=== PATIENT | male | born 1950 | race Caucasian/White ===

== ENCOUNTER 2022-03-23 18:45 | Emergency (ER) | payer MEDICARE, MEDICAID, SELFPAY ==
--- NOTE | ~2022-03-23 | XR_ITS ---
EXAMINATION: PORTABLE CHEST 1 VIEW CLINICAL INFORMATION: weakness . COMPARISON: No pertinent prior studies available. TECHNIQUE: Portable frontal view of the chest was obtained. FINDINGS: The lungs are hypoexpanded. Mild basilar atelectasis. No focal infiltrate, effusion, edema, or pneumothorax. Cardiac and mediastinal silhouettes are within normal limits for technique. Minimally displaced fractures of the posterior right third rib of uncertain age. XR/XR chest 1V IMPRESSION: Hypoexpanded with basilar atelectasis. Minimally displaced posterior right third rib fracture of uncertain age.
--- NOTE | ~2022-03-23 | CT_ITS ---
EXAMINATION: CT HEAD WITHOUT CONTRAST CLINICAL INFORMATION: Acute mental status change COMPARISON: None TECHNIQUE: Imaging was performed from the skull base to vertex without intravenous administration of contrast. This CT examination was performed using dose optimization techniques as appropriate, variously including the following: *Automated exposure control *Adjustment of mA and/or kV according to patient size (this includes techniques or standardized protocols for targeted exams where dose is matched to indication/reason for exam; i.e. extremities or head) *Use of iterative reconstruction technique Total exam dose length product: 835 mGy-cm FINDINGS: No intra or extra-axial fluid collection, hemorrhage, or mass. No ventriculomegaly. No midline shift or herniation. Basal cisterns are patent. Aguiar-white matter differentiation is maintained. No territorial encephalomalacia. Proportional prominence of the ventricles and sulcal spaces is consistent with mild volume loss. Minimal nonspecific periventricular white matter hypoattenuation bilaterally. A couple of small hypodense foci in the inferior lentiform nuclei bilaterally, likely represent small dilated perivascular spaces. No calvarial fracture or soft tissue abnormality. Trace mucus or tiny mucous retention cyst in the left frontal sinus. Paranasal sinuses and mastoid air cells otherwise normally aerated. CT/CT head/brain wo IV con IMPRESSION: 1. No acute intracranial pathology.
--- NOTE | ~2022-03-23 | CT_ITS ---
EXAMINATION: CT ABDOMEN AND PELVIS WITHOUT CONTRAST CLINICAL INFORMATION: Abdominal pain COMPARISON: None TECHNIQUE: Multidetector volumetric imaging was performed from the superior aspect of the liver through the pubic symphysis. Sagittal and coronal reformatted images were obtained on the technologist's workstation. This CT examination was performed using dose optimization techniques as appropriate, variously including the following: *Automated exposure control *Adjustment of mA and/or kV according to patient size (this includes techniques or standardized protocols for targeted exams where dose is matched to indication/reason for exam; i.e. extremities or head) *Use of iterative reconstruction technique DLP: 881 mGy-cm FINDINGS: LUNG BASES: The visualized lung bases are unremarkable. Calcifications are present in the aortic cusps. No pleural effusions, consolidations or lung masses are seen. LIVER, GALLBLADDER, AND BILIARY TREE: The liver is normal in size, shape, and attenuation. 2 benign hepatic cysts are present measuring 1.0 and 1.5 cm. No worrisome solid focal hepatic lesion or biliary ductal dilatation is present. The gallbladder is unremarkable with no evidence of radiopaque gallstones, gallbladder wall thickening, or obvious pericholecystic inflammatory changes. PANCREAS: Unremarkable. SPLEEN: Unremarkable. ADRENAL GLANDS: Unremarkable. KIDNEYS AND URETERS: The kidneys are normal in size, shape, and attenuation. No hydronephrosis, hydroureter, or calculi seen. No perinephric stranding. BLADDER: Unremarkable. GASTROINTESTINAL TRACT: The small and large bowel are unremarkable aside from colonic diverticulosis without diverticulitis. The appendix is unremarkable. ABDOMINAL WALL: A small left inguinal hernia seen containing fat. LYMPH NODES: No retroperitoneal lymphadenopathy. VASCULAR: Calcific plaque present in the aorta and iliac vessels which are tortuous and mildly ectatic. No aneurysm. PELVIC VISCERA: The prostate and seminal vesicles are unremarkable. OSSEOUS STRUCTURES: A hemangioma is present in the L1. Degenerative changes are present throughout the spine most marked at L4-L5. CT/CT abdomen pelvis wo IV con IMPRESSION: 1. A cause for the patient's abdominal pain has not been found. 2. Incidental note made of benign hepatic cysts, colonic diverticulosis without diverticulitis, L1 hemangioma, degenerative changes in the spine and a small left inguinal hernia containing fat. Fleischner guidelines were followed.
--- NOTE | 2022-03-23 18:55 | ED.GENADULT ---
HPI - General Adult General Chief complaint: General Medical <MARTHA Mccormack - Last Filed: 03/24/22 00:41> Stated complaint: AMS <MARTHA Mccormack - Last Filed: 03/24/22 00:41> Time Seen by Provider: 03/23/22 18:55 <MARTHA Mccormack Last Filed: 03/24/22 00:41> Source: patient and EMS <MARTHA Mccormack Last Filed: 03/24/22 00:41> Mode of arrival: EMS <MARTHA Mccormack Last Filed: 03/24/22 00:41> Limitations: no limitations <MARTHA Mccormack Last Filed: 03/24/22 00:41> History of Present Illness HPI narrative: Patient is a 71 year old assigned male at with no reported medical history presenting to the emergency department today from a SNF after an episode of tachycarida. Patient states that he feels as though he needs to have a bowel movement but has not been able to. Patient states that because of that he is having some abdominal pain as well. Patient denies any dizziness, lightheadedness, nausea, vomiting, fever, chills, blurry vision, double vision, loss of vision, chest pain, difficulty breathing, shortness of breath, back pain, night sweats, pain with urination, increased urinary frequency, increased urinary urgency, blood in his urine or stool, syncope or a near syncopal episode, recent trauma or falls, bowel incontinence, bladder incontinence, bladder retention, or any other complaints at this time. <MARTHA Mccormack - Last Filed: 03/24/22 00:41> Onset (ago): minute(s) <MARTHA Mccormack - Last Filed: 03/24/22 00:41> Location: abdomen <MARTHA Mccormack - Last Filed: 03/24/22 00:41> Radiation: non-radiation <MARTHA Mccormack - Last Filed: 03/24/22 00:41> Severity: mild <MARTHA Mccormack Last Filed: 03/24/22 00:41> Severity scale (1-10): 3 <MARTHA Mccormack Last Filed: 03/24/22 00:41> Relieving factors: none <MARTHA Mccormack Last Filed: 03/24/22 00:41> Exacerbating factors: none <MARTHA Mccormack Last Filed: 03/24/22 00:41> Associated symptoms: denies other symptoms <MARTHA Mccormack Last Filed: 03/24/22 00:41> Treatments prior to arrival: none <MARTHA Mccromack Last Filed: 03/24/22 00:41> Related Data Allergies/adverse reactions: Allergies Allergy/AdvReac Type Severity Reaction Status Date / Time Unable to Assess Allergy Unverified 03/23/22 18:59 <MARTHA Mccormack Last Filed: 03/24/22 00:41> Review of Systems Constitutional: Constitutional: Reports no additional constitutional complaints, Denies chills, Denies fever(s) and Denies night sweats <MARTHA Mccormack Last Filed: 03/24/22 00:41> Eyes: Eyes: Reports no additional eye complaints, Denies blurry vision, Denies change in vision, Denies diplopia, Denies eye discharge, Denies loss of vision and Denies eye pain <MARTHA Mccormack Last Filed: 03/24/22 00:41> ENT: Denies dizziness <MARTHA Mccormack Last Filed: 03/24/22 00:41> Cardiovascular: Cardiovascular: Reports no additional cardiovascular complaints, Denies chest pain, Denies lightheadedness, Denies Loss of Consciousness and Denies dyspnea <MARTHA Mccormack Last Filed: 03/24/22 00:41> Respiratory: Respiratory: Reports no additional respiratory complaints and Denies dyspnea <MARTHA Mccormack Last Filed: 03/24/22 00:41> Gastrointestinal: Gastrointestinal: Reports no additional gastrointestinal complaints, Denies abdominal pain, Denies melena, Denies hematochezia, Denies change in bowel habits, Denies change in stool character and Reports constipation <MARTHA Mccormack Last Filed: 03/24/22 00:41> Genitourinary: Genitourinary: Reports no additional male genitourinary complaints, Denies hematuria, Denies oliguria, Denies difficulty urinating, Denies dysuria, Denies urinary frequency, Denies urinary hesitancy, Denies urinary incontinence and Denies urinary urgency <MARTHA Mccormack - Last Filed: 03/24/22 00:41> Musculoskeletal: Musculoskeletal: Reports no additional musculoskeletal complaints, Denies numbness and Denies tingling <MARTHA Mccormack - Last Filed: 03/24/22 00:41> Neurologic: Denies dizziness, Denies loss of vision, Denies numbness and Denies tingling <MARTHA Mccormack - Last Filed: 03/24/22 00:41> Psychiatric: Psychiatric: Reports no additional psychiatric complaints <MARTHA Mccormack - Last Filed: 03/24/22 00:41> Endocrine: Endocrine: Reports no additional endocrine complaints <MARTHA Mccormack - Last Filed: 03/24/22 00:41> Hematologic/Lymphatic: Hematologic/Lymphatic: Reports no additional hematologic/lymphatic complaints <MARTHA Mccormack - Last Filed: 03/24/22 00:41> Allergic/Immunologic: Allergic/Immunologic: Reports no additional allergic/immunologic complaints <MARTHA Mccormack - Last Filed: 03/24/22 00:41> [facility] Past Medical History Attestation statement: The following information was validated with the patient. <MARTHA Mccormack - Last Filed: 03/24/22 00:41> Source: old records reviewed and nursing notes reviewed <MARTHA Mccormack - Last Filed: 03/24/22 00:41> Social History Social History: Social History Advance Directives: Yes Advance Directives on File: Yes Advance Directives Date on File: 03/23/22 <MARTHA Mccormack - Last Filed: 03/24/22 00:41> Physical Exam ED Vital Signs: Vital Signs - 24 hr 03/23/22 18:57 03/23/22 19:52 03/23/22 21:15 Temperature 97.7 F 98.5 F Pulse Rate 90 75 88 Respiratory Rate 23 H 16 14 Blood Pressure 143/89 H 132/78 131/73 Pulse Oximetry 97 95 98 Oxygen Delivery Method Room Air Room Air Room Air 03/23/22 21:48 Temperature 98.6 F Pulse Rate 87 Respiratory Rate 18 Blood Pressure 141/88 H Pulse Oximetry 96 Oxygen Delivery Method Room Air BMI result Body Mass Index 27.2 <MARTHA Mccormack - Last Filed: 03/24/22 00:41> Vital Signs - 24 hr 03/23/22 18:57 03/23/22 19:52 03/23/22 21:15 Temperature 97.7 F 98.5 F Pulse Rate 90 75 88 Respiratory Rate 23 H 16 14 Blood Pressure 143/89 H 132/78 131/73 Pulse Oximetry 97 95 98 Oxygen Delivery Method Room Air Room Air Room Air 03/23/22 21:48 Temperature 98.6 F Pulse Rate 87 Respiratory Rate 18 Blood Pressure 141/88 H Pulse Oximetry 96 Oxygen Delivery Method Room Air BMI result Body Mass Index 27.2 <Mynor Kamara MD - Last Filed: 03/24/22 00:45> Const General: cooperative, no acute distress, alert and awake <MARTHA Mccormack - Last Filed: 03/24/22 00:41> Nutritional Appearance: well nourished <MARTHA Mccormack - Last Filed: 03/24/22 00:41> Orientation/consciousness: patient oriented x3 <MARTHA Mccormack - Last Filed: 03/24/22 00:41> Limitations: no limitations <MARTHA Mccormack - Last Filed: 03/24/22 00:41> HENMT Head: Yes normal to inspection and Yes atraumatic <MARTHA Mccormack - Last Filed: 03/24/22 00:41> Ears: hearing grossly normal bilaterally and external ears normal <MARTHA Mccormack - Last Filed: 03/24/22 00:41> General nose exam: Normal external nose present, no nasal discharge noted and no epistaxis <MARTHA Mccormack - Last Filed: 03/24/22 00:41> Face and sinus: Yes normal facial exam, No abrasion and No laceration <MARTHA Mccormack Last Filed: 03/24/22 00:41> Mouth: Normal oral and palatal mucosa present, no drooling and no muffled voice <MARTHA Mccormack - Last Filed: 03/24/22 00:41> Eyes General: appearance normal, both eyes and all related structures <MARTHA Mccormack - Last Filed: 03/24/22 00:41> Periorbital: periorbital findings normal <Kellymorris CoronaMARTHA winston - Last Filed: 03/24/22 00:41> Eyelids: Yes eyelids normal <Kellymorris CoronaMARTHA winston - Last Filed: 03/24/22 00:41> Conjunctivae: conjunctivae normal <Kelly CoronaMARTHA winston - Last Filed: 03/24/22 00:41> Pupils: Equal, round and reactive pupils present <MARTHA Mccormack - Last Filed: 03/24/22 00:41> EOM: EOMs intact bilaterally <Kellymorris CoronaMARTHA winston - Last Filed: 03/24/22 00:41> Neck Neck: Yes normal visual inspection, Yes full ROM and Yes no lymphadenopathy <MARTHA Mccormack - Last Filed: 03/24/22 00:41> Chest Chest palpation & inspection: normal inspection of the chest <MARTHA Mccormack - Last Filed: 03/24/22 00:41> Resp Effort & Inspection: normal respiratory effort and able to speak in complete sentences <MARTHA Mccormack - Last Filed: 03/24/22 00:41> Auscultation: clear to auscultation bilaterally <MARTHA Mccormack - Last Filed: 03/24/22 00:41> Cardio Rate: regular rate <MARTHA Mccormack - Last Filed: 03/24/22 00:41> Rhythm: regular rhythm <MARTHA Mccormack - Last Filed: 03/24/22 00:41> GI Inspection: Yes normal to inspection <MARTHA Mccormack - Last Filed: 03/24/22 00:41> Palpation (GI): Soft to palpation, not firm, nontender, no guarding and not rigid <MARTHA Mccormack - Last Filed: 03/24/22 00:41> Rectal Exam - Male: Yes Visual inspection abnormal (large amount of stool at rectum) <MARTHA Mccormack - Last Filed: 03/24/22 00:41> Neuro General: patient oriented x3 and moves all extremities <MARTHA Mccormack - Last Filed: 03/24/22 00:41> Cranial nerves: Yes Equal, round and reactive pupils present <MARTHA Mccormack - Last Filed: 03/24/22 00:41> Cognition (Neuro): normal cognition <MARTHA Mccormack - Last Filed: 03/24/22 00:41> Motor exam (neuro): 5/5 motor strength present throughout <MARTHA Mccormack - Last Filed: 03/24/22 00:41> Sensory Exam: Normal double simultaneous stimulation for sensation <MARTHA Mccormack - Last Filed: 03/24/22 00:41> Coordination: [id number] test normal <MARTHA Mccormack - Last Filed: 03/24/22 00:41> Extrem General: Yes normal to inspection, Yes full ROM and Yes capillary refill normal <MARTHA Mccormack - Last Filed: 03/24/22 00:41> Psych Appearance: grossly normal <MARTHA Mccormack - Last Filed: 03/24/22 00:41> Mental Status: mental status grossly normal <MARTAH Mccormack - Last Filed: 03/24/22 00:41> Affect: normal affect <MARTHA Mccormack - Last Filed: 03/24/22 00:41> Attitude: cooperative <MARTHA Mccormack - Last Filed: 03/24/22 00:41> Thought process: Normal thought process present <MARTHA Mccormack - Last Filed: 03/24/22 00:41> Thought content: Normal thought content present <MARTHA Mccormack - Last Filed: 03/24/22 00:41> Insight: Good insight present (Psych) <MARTHA Mccormack - Last Filed: 03/24/22 00:41> Medications Administered Discontinued Medications Generic Name Dose Route Start Last Admin Trade Name Freq PRN Reason Stop Dose Admin Sodium Biphosphate/Sodium Phosphate 133 ml 03/23/22 19:34 03/23/22 21:25 Sodium Phosphate,[facility]-Dib[facility] 133 Ml Enema [place] 03/23/22 19:35 133 ml ONCE ONE Administration <MARTHA Mccormack - Last Filed: 03/24/22 00:41> Medications Administered Discontinued Medications Generic Name Dose Route Start Last Admin Trade Name Freq PRN Reason Stop Dose Admin Sodium Biphosphate/Sodium Phosphate 133 ml 03/23/22 19:34 03/23/22 21:25 Sodium Phosphate,[facility]Dibasic 133 Ml Enema [place] 03/23/22 19:35 133 ml ONCE ONE Administration <Mynor Kamara MD - Last Filed: 03/24/22 00:45> Procedures Rectal Disimpaction Time out performed rectal disimpaction: Yes <MARTHA Mccormack - Last Filed: 03/24/22 00:41> Indication: fecal impaction <MARTHA Mccormack - Last Filed: 03/24/22 00:41> Procedural Sedation: No <MARTHA Mccormack - Last Filed: 03/24/22 00:41> Sedation/Analgesia: none <MARTHA Mccormack - Last Filed: 03/24/22 00:41> Technique: manual disimpaction with gloved finger <MARTHA Mccormack - Last Filed: 03/24/22 00:41> Result: significant stool output <MARTHA Mccormack - Last Filed: 03/24/22 00:41> Patient Tolerated Procedure: well <MARTHA Mccormack - Last Filed: 03/24/22 00:41> Complications: none <MARTHA Mccormack - Last Filed: 03/24/22 00:41> Additional Comments: Disimpaction performed by Dr. Mynor Kamara <Mynor Kamara MD - Last Filed: 03/24/22 00:45> Medical Decision Making Medical Decision Making MDM Narrative: Patient is a 71 year old assigned male at with no reported medical history presenting to the emergency department today after an episode of tachycardia and constipation. Patient's physical exam showed a large stool burden at the rectum requiring disimpaction. Patient's blood work was unremarkable. Patient's urine showed no acute process. Patient's EKG was unremarkable. Patient's chest x-ray, head CT, and abdomen/pelvis CT showed no acute process. I explained my physical exam findings as well as all test results to the patient. I answered all questions asked by the patient. Patient felt significantly better after having a large bowel movement post disimpaction. I stressed the importance of the patient taking his medication as prescribed. I stressed the importance of the patient following up with his primary care provider. I stressed the importance of the patient returning to the emergency department immediately if his symptoms were to worsen or if he were to develop any dizziness, shortness of breath, difficulty breathing, chest pain, blurry vision, loss of vision, nausea, vomiting, abdominal pain, fever, chills, back pain, or any other complaints. Patient verbalized agreement and understanding with this treatment plan and discharge. <MARTHA Mccormack - Last Filed: 03/24/22 00:41> Differential Diagnosis Differential Diagnoses: The differential diagnosis associated with the presentation includes <MARTHA Mccormack - Last Filed: 03/24/22 00:41> constipation <MARTHA Mccormack - Last Filed: 03/24/22 00:41> Lab Data MDM Lab Attestation statement: I reviewed the patient's lab results. <MARTHA Mccormack - Last Filed: 03/24/22 00:41> Result Diagrams: : 03/23/22 19:34 03/23/22 19:34 <MARTHA Mccormack - Last Filed: 03/24/22 00:41> Labs: Lab Results 03/23/22 03/23/22 03/23/22 Range/Units 19:34 19:34 19:34 WBC 7.2 (4.8-10.8) X10*3/uL RBC 4.40 L (4.60-5.80) X10*6/uL Hgb 13.5 L (14.0-18.0) g/dl Hct 39.3 L (42.0-52.0) % MCV 89.3 (80.0-98.0) fL MCH 30.7 (27.0-33.0) pg MCHC 34.4 (31.0-36.0) g/dl RDW 12.9 (11.0-16.0) % Plt Count 198 (160-400) X10*3/uL MPV 10.0 (9.4-12.4) fL Immature Gran % (Auto) 0.4 (0.0-0.4) % Neut % (Auto) 87.6 H (45-73) % Lymph % (Auto) 7.2 L (20-40) % [facility] % (Auto) 3.6 (2-11) % Eos % (Auto) 0.8 (0-4) % Baso % (Auto) 0.4 (0-2) % Lymph # (Auto) 0.5 L (1.2-4.9) X10*3/uL [facility] # (Auto) 0.3 (0.1-1.2) X10*3/uL Eos # (Auto) 0.1 (0.0-0.4) X10*3/uL Baso # (Auto) 0.0 (0.0-0.2) X10*3/uL Abs Immat Gran (auto) 0.03 (0.00-0.03) X10*3/uL Absolute Neuts (auto) 6.3 (2.0-8.3) x10*3/uL Absolute Nucleated RBC 0.000 (0.0-0.012) X10*3/uL Nucleated RBC % (auto) 0.0 (0.0-0.2) /100WBC Sodium 142 (135-145) mmol/L Potassium 3.9 (3.3-5.1) mmol/L Chloride 111 H (96-108) mmol/L Carbon Dioxide 24 (22-29) mmol/L Anion Gap 11 L (12-20) BUN 23 H (9-16) mg/dL Creatinine 0.79 (0.5-1.4) mg/dL Estim Creat Clear Calc 91.1 Estimated GFR > 60 Random Glucose 104 (60-115) mg/dL Lactic Acid 1.7 (0.5-2.0) mmol/L Calcium 8.8 (8.4-10.2) mg/dL Magnesium 2.0 (1.6-2.6) mg/dL Total Bilirubin 0.4 (0.0-1.0) mg/dL AST 14 (5-37) U/L ALT 16 (0-40) U/L Alkaline Phosphatase 84 (39-117) U/L Troponin I High Sens (<3.5-35.0) ng/L Total Protein 6.5 (6.5-8.0) g/dL Albumin 3.7 (3.5-5.0) g/dL Urine Color Urine Appearance Urine pH (5.0-9.0) Ur Specific Harvey (1.005-1.025) Urine Protein (Neg-Trace) mg/dL Urine Glucose (UA) (Negative) mg/dL Urine Ketones (Negative) mg/dL Urine Blood (Negative) Urine Nitrite (Negative) Ur Leukocyte Esterase (Negative) Influenza Type A (PCR) (Negative) Influenza Type B (PCR) (Negative) RSV RNA Qual (PCR) (Negative) SARS-CoV-2 RNA (RT-PCR) (Negative) 03/23/22 03/23/22 03/23/22 Range/Units 19:34 19:34 21:17 WBC (4.8-10.8) X10*3/uL RBC (4.60-5.80) X10*6/uL Hgb (14.0-18.0) g/dl Hct (42.0-52.0) % MCV (80.0-98.0) fL MCH (27.0-33.0) pg MCHC (31.0-36.0) g/dl RDW (11.0-16.0) % Plt Count (160-400) X10*3/uL MPV (9.4-12.4) fL Immature Gran % (Auto) (0.0-0.4) % Neut % (Auto) (45-73) % Lymph % (Auto) (20-40) % [facility] % (Auto) (2-11) % Eos % (Auto) (0-4) % Baso % (Auto) (0-2) % Lymph # (Auto) (1.2-4.9) X10*3/uL [facility] # (Auto) (0.1-1.2) X10*3/uL Eos # (Auto) (0.0-0.4) X10*3/uL Baso # (Auto) (0.0-0.2) X10*3/uL Abs Immat Gran (auto) (0.00-0.03) X10*3/uL Absolute Neuts (auto) (2.0-8.3) x10*3/uL Absolute Nucleated RBC (0.0-0.012) X10*3/uL Nucleated RBC % (auto) (0.0-0.2) /100WBC Sodium (135-145) mmol/L Potassium (3.3-5.1) mmol/L Chloride (96-108) mmol/L Carbon Dioxide (22-29) mmol/L Anion Gap (12-20) BUN (9-16) mg/dL Creatinine (0.5-1.4) mg/dL Estim Creat Clear Calc Estimated GFR Random Glucose (60-115) mg/dL Lactic Acid (0.5-2.0) mmol/L Calcium (8.4-10.2) mg/dL Magnesium (1.6-2.6) mg/dL Total Bilirubin (0.0-1.0) mg/dL AST (5-37) U/L ALT (0-40) U/L Alkaline Phosphatase (39-117) U/L Troponin I High Sens 6.7 (<3.5-35.0) ng/L Total Protein (6.5-8.0) g/dL Albumin (3.5-5.0) g/dL Urine Color Yellow Urine Appearance Clear Urine pH 5.5 (5.0-9.0) Ur Specific Harvey 1.025 (1.005-1.025) Urine Protein Trace (Neg-Trace) mg/dL Urine Glucose (UA) Negative (Negative) mg/dL Urine Ketones Negative (Negative) mg/dL Urine Blood Negative (Negative) Urine Nitrite Negative (Negative) Ur Leukocyte Esterase Negative (Negative) Influenza Type A (PCR) NEGATIVE (Negative) Influenza Type B (PCR) NEGATIVE (Negative) RSV RNA Qual (PCR) NEGATIVE (Negative) SARS-CoV-2 RNA (RT-PCR) NEGATIVE (Negative) <MARTHA Mccormack - Last Filed: 03/24/22 00:41> Lab Results 03/23/22 03/23/22 03/23/22 Range/Units 19:34 19:34 19:34 WBC 7.2 (4.8-10.8) X10*3/uL RBC 4.40 L (4.60-5.80) X10*6/uL Hgb 13.5 L (14.0-18.0) g/dl Hct 39.3 L (42.0-52.0) % MCV 89.3 (80.0-98.0) fL MCH 30.7 (27.0-33.0) pg MCHC 34.4 (31.0-36.0) g/dl RDW 12.9 (11.0-16.0) % Plt Count 198 (160-400) X10*3/uL MPV 10.0 (9.4-12.4) fL Immature Gran % (Auto) 0.4 (0.0-0.4) % Neut % (Auto) 87.6 H (45-73) % Lymph % (Auto) 7.2 L (20-40) % [facility] % (Auto) 3.6 (2-11) % Eos % (Auto) 0.8 (0-4) % Baso % (Auto) 0.4 (0-2) % Lymph # (Auto) 0.5 L (1.2-4.9) X10*3/uL [facility] # (Auto) 0.3 (0.1-1.2) X10*3/uL Eos # (Auto) 0.1 (0.0-0.4) X10*3/uL Baso # (Auto) 0.0 (0.0-0.2) X10*3/uL Abs Immat Gran (auto) 0.03 (0.00-0.03) X10*3/uL Absolute Neuts (auto) 6.3 (2.0-8.3) x10*3/uL Absolute Nucleated RBC 0.000 (0.0-0.012) X10*3/uL Nucleated RBC % (auto) 0.0 (0.0-0.2) /100WBC Sodium 142 (135-145) mmol/L Potassium 3.9 (3.3-5.1) mmol/L Chloride 111 H (96-108) mmol/L Carbon Dioxide 24 (22-29) mmol/L Anion Gap 11 L (12-20) BUN 23 H (9-16) mg/dL Creatinine 0.79 (0.5-1.4) mg/dL Estim Creat Clear Calc 91.1 Estimated GFR > 60 Random Glucose 104 (60-115) mg/dL Lactic Acid 1.7 (0.5-2.0) mmol/L Calcium 8.8 (8.4-10.2) mg/dL Magnesium 2.0 (1.6-2.6) mg/dL Total Bilirubin 0.4 (0.0-1.0) mg/dL AST 14 (5-37) U/L ALT 16 (0-40) U/L Alkaline Phosphatase 84 (39-117) U/L Troponin I High Sens (<3.5-35.0) ng/L Total Protein 6.5 (6.5-8.0) g/dL Albumin 3.7 (3.5-5.0) g/dL Urine Color Urine Appearance Urine pH (5.0-9.0) Ur Specific Harvey (1.005-1.025) Urine Protein (Neg-Trace) mg/dL Urine Glucose (UA) (Negative) mg/dL Urine Ketones (Negative) mg/dL Urine Blood (Negative) Urine Nitrite (Negative) Ur Leukocyte Esterase (Negative) Influenza Type A (PCR) (Negative) Influenza Type B (PCR) (Negative) RSV RNA Qual (PCR) (Negative) SARS-CoV-2 RNA (RT-PCR) (Negative) 03/23/22 03/23/22 03/23/22 Range/Units 19:34 19:34 21:17 WBC (4.8-10.8) X10*3/uL RBC (4.60-5.80) X10*6/uL Hgb (14.0-18.0) g/dl Hct (42.0-52.0) % MCV (80.0-98.0) fL MCH (27.0-33.0) pg MCHC (31.0-36.0) g/dl RDW (11.0-16.0) % Plt Count (160-400) X10*3/uL MPV (9.4-12.4) fL Immature Gran % (Auto) (0.0-0.4) % Neut % (Auto) (45-73) % Lymph % (Auto) (20-40) % [facility] % (Auto) (2-11) % Eos % (Auto) (0-4) % Baso % (Auto) (0-2) % Lymph # (Auto) (1.2-4.9) X10*3/uL [facility] # (Auto) (0.1-1.2) X10*3/uL Eos # (Auto) (0.0-0.4) X10*3/uL Baso # (Auto) (0.0-0.2) X10*3/uL Abs Immat Gran (auto) (0.00-0.03) X10*3/uL Absolute Neuts (auto) (2.0-8.3) x10*3/uL Absolute Nucleated RBC (0.0-0.012) X10*3/uL Nucleated RBC % (auto) (0.0-0.2) /100WBC Sodium (135-145) mmol/L Potassium (3.3-5.1) mmol/L Chloride (96-108) mmol/L Carbon Dioxide (22-29) mmol/L Anion Gap (12-20) BUN (9-16) mg/dL Creatinine (0.5-1.4) mg/dL Estim Creat Clear Calc Estimated GFR Random Glucose (60-115) mg/dL Lactic Acid (0.5-2.0) mmol/L Calcium (8.4-10.2) mg/dL Magnesium (1.6-2.6) mg/dL Total Bilirubin (0.0-1.0) mg/dL AST (5-37) U/L ALT (0-40) U/L Alkaline Phosphatase (39-117) U/L Troponin I High Sens 6.7 (<3.5-35.0) ng/L Total Protein (6.5-8.0) g/dL Albumin (3.5-5.0) g/dL Urine Color Yellow Urine Appearance Clear Urine pH 5.5 (5.0-9.0) Ur Specific Harvey 1.025 (1.005-1.025) Urine Protein Trace (Neg-Trace) mg/dL Urine Glucose (UA) Negative (Negative) mg/dL Urine Ketones Negative (Negative) mg/dL Urine Blood Negative (Negative) Urine Nitrite Negative (Negative) Ur Leukocyte Esterase Negative (Negative) Influenza Type A (PCR) NEGATIVE (Negative) Influenza Type B (PCR) NEGATIVE (Negative) RSV RNA Qual (PCR) NEGATIVE (Negative) SARS-CoV-2 RNA (RT-PCR) NEGATIVE (Negative) <Mynor Kamara MD - Last Filed: 03/24/22 00:45> Independent Interpretation I performed an independent interpretation of an: EKG <MARTHA Mccormack - Last Filed: 03/24/22 00:41> Interpretation: Vent. Rate: 086 BPM ? ? Atrial Rate: 086 BPM P-R Int: 184 ms? QRS Dur: 088 ms QT Int: 388 ms ? ? ? P-R-T Axes: 033 -26 -04 degrees QTc Int: 464 ms ? Normal sinus rhythm Minimal voltage criteria for LVH, may be normal variant (R in aVL) Borderline ECG No previous ECGs available DD/ 13 <MARTHA Mccormack - Last Filed: 03/24/22 00:41> Radiology Impression Discussion of test interpretation with radiology: I have reviewed the radiologist's reading. <MARTHA Mccormack - Last Filed: 03/24/22 00:41> Radiologist Impression: EXAMINATION: CT ABDOMEN AND PELVIS WITHOUT CONTRAST? CLINICAL INFORMATION: Abdominal pain? COMPARISON: None? TECHNIQUE: Multidetector volumetric imaging was performed from the superior aspect of the liver through the pubic symphysis. Sagittal and coronal reformatted images were obtained on the technologist's workstation.? This CT examination was performed using dose optimization techniques as appropriate, variously including the following: *Automated exposure control *Adjustment of mA and/or kV according to patient size (this includes techniques or standardized protocols for targeted exams where dose is matched to indication/reason for exam; i.e. extremities or head) *Use of iterative reconstruction technique DLP: 881 mGy-cm FINDINGS: LUNG BASES: The visualized lung bases are unremarkable. Calcifications are present in the aortic cusps. No pleural effusions, consolidations or lung masses are seen. LIVER, GALLBLADDER, AND BILIARY TREE: The liver is normal in size, shape, and attenuation. 2 benign hepatic cysts are present measuring 1.0 and 1.5 cm. ? No worrisome solid focal hepatic lesion or biliary ductal dilatation is present. The gallbladder is unremarkable with no evidence of radiopaque gallstones, gallbladder wall thickening, or obvious pericholecystic inflammatory changes.? PANCREAS: Unremarkable.? SPLEEN: Unremarkable.? ADRENAL GLANDS: Unremarkable.? KIDNEYS AND URETERS: The kidneys are normal in size, shape, and attenuation. No hydronephrosis, hydroureter, or calculi seen. No perinephric stranding. ? BLADDER: Unremarkable.? GASTROINTESTINAL TRACT: The small and large bowel are unremarkable aside from colonic diverticulosis without diverticulitis. The appendix is unremarkable.? ABDOMINAL WALL: A small left inguinal hernia seen containing fat.? LYMPH NODES: No retroperitoneal lymphadenopathy. VASCULAR: Calcific plaque present in the aorta and iliac vessels which are tortuous and mildly ectatic. No aneurysm. PELVIC VISCERA: The prostate and seminal vesicles are unremarkable.? OSSEOUS STRUCTURES: A hemangioma is present in the L1.? Degenerative changes are present throughout the spine most marked at L4-L5. CT/CT abdomen pelvis wo IV con IMPRESSION: 1.? A cause for the patient's abdominal pain has not been found. 2.? Incidental note made of benign hepatic cysts, colonic diverticulosis without diverticulitis, L1 hemangioma, degenerative changes in the spine and a small left inguinal hernia containing fat. ? Fleischner guidelines were followed. Dictated By: Jun Lopes MD Signed By: Electronically signed by Jun Lopes MD 03/23/222039 EXAMINATION: CT HEAD WITHOUT CONTRAST CLINICAL INFORMATION: Acute mental status change? COMPARISON: None TECHNIQUE: Imaging was performed from the skull base to vertex without intravenous administration of contrast. This CT examination was performed using dose optimization techniques as appropriate, variously including the following: *Automated exposure control *Adjustment of mA and/or kV according to patient size (this includes techniques or standardized protocols for targeted exams where dose is matched to indication/reason for exam; i.e. extremities or head) *Use of iterative reconstruction technique Total exam dose length product: 835 mGy-cm FINDINGS: No intra or extra-axial fluid collection, hemorrhage, or mass. No ventriculomegaly. No midline shift or herniation. Basal cisterns are patent. Aguiar-white matter differentiation is maintained. No territorial encephalomalacia. ?Proportional prominence of the ventricles and sulcal spaces is consistent with mild volume loss. Minimal nonspecific periventricular white matter hypoattenuation bilaterally. A couple of small hypodense foci in the inferior lentiform nuclei bilaterally, likely represent small dilated perivascular spaces. No calvarial fracture or soft tissue abnormality.? Trace mucus or tiny mucous retention cyst in the left frontal sinus. Paranasal sinuses and mastoid air cells otherwise normally aerated. CT/CT head/brain wo IV con IMPRESSION: 1.? No acute intracranial pathology. Dictated By: Amrit Christian Signed By: Electronically signed by Amrit Christian 03/23/222036 EXAMINATION: PORTABLE CHEST 1 VIEW CLINICAL INFORMATION: weakness COMPARISON: No pertinent prior studies available. TECHNIQUE: Portable frontal view of the chest was obtained. FINDINGS: The lungs are hypoexpanded. Mild basilar atelectasis. No focal infiltrate, effusion, edema, or pneumothorax. Cardiac and mediastinal silhouettes are within normal limits for technique. Minimally displaced fractures of the posterior right third rib of uncertain age. XR/XR chest 1V IMPRESSION: Hypoexpanded with basilar atelectasis. Minimally displaced posterior right third rib fracture of uncertain age. Dictated By: Mike Aragon MD Signed By: Electronically signed by Mike Aragon MD 03/23/222013 <MARTHA Mccormack - Last Filed: 03/24/22 00:41> Independent Historian Clinical information obtained from an independent historian. History obtained from or confirmed by: EMS <MARTHA Mccormack - Last Filed: 03/24/22 00:41> External Record Review External record reviewed: Other (SNF records) <MATRHA Mccormack - Last Filed: 03/24/22 00:41> Discharge Plan Discharge Clinical Impression: Acute constipation <MARTHA Mccormack Last Filed: 03/24/22 00:41> Patient Disposition: Xfer SNF <MARTHA Mccormack - Last Filed: 03/24/22 00:41> Instructions: Constipation (ED) <MARTHA Mccormack - Last Filed: 03/24/22 00:41> Additional Instructions: Follow up with your primary care provider. Return to the emergency department immediately if your symptoms worsen or if you develop any dizziness, shortness of breath, difficulty breathing, chest pain, blurry vision, loss of vision, nausea, vomiting, abdominal pain, fever, chills, back pain, or any other complaints. <MARTHA Mccormack - Last Filed: 03/24/22 00:41> Referrals: [facility] Family Medicine [Provider Group] (Call to establish and follow up with a primary care provider. If you already have a primary care provider, please follow up with them. ) [facility] Primary Care, Candi [Provider Group] (Call to establish and follow up with a primary care provider. If you already have a primary care provider, please follow up with them. ) [facility] Primary Care,Mony [Provider Group] (Call to establish and follow up with a primary care provider. If you already have a primary care provider, please follow up with them. ) <MARTHA Mccormack - Last Filed: 03/24/22 00:41> Print Language: Armenian <MARTHA Mccormack - Last Filed: 03/24/22 00:41>
[2022-03-23 18:57] VITALS: BP 143/89; BP 178/109; PULSE 122; PULSE 90; RESP 23; TEMP 36.5; O2SAT 94; O2SAT 97; BMI 27.2
--- NOTE | 2022-03-23 18:59 | ECG_ITS ---
Test Reason : WEAKNESS Blood Pressure : / mmHG Vent. Rate : 086 BPM Atrial Rate : 086 BPM P-R Int : 184 ms QRS Dur : 088 ms QT Int : 388 ms P-R-T Axes : 033 -26 -04 degrees QTc Int : 464 ms Normal sinus rhythm Minimal voltage criteria for LVH, may be normal variant ( R in aVL ) Borderline ECG No previous ECGs available Referred By: Kelly Ferguson Electronically Signed By:Jose Carlos Tinoco
[2022-03-23 19:44] LABS: MANUAL DIFF FLAG NO
[2022-03-23 19:45] LABS: Basophils Percent Auto 0.4 % (0-2); Eosinophils Absolute Auto 0.1 X10*3/uL (0.0-0.4); Eosinophils Percent Auto 0.8 % (0-4); Hematocrit 39.3 % (42.0-52.0); Hemoglobin 13.5 g/dl (14.0-18.0); Imm Gran Abs Auto 0.03 X10*3/uL (0.00-0.03); Imm Gran Pct Auto 0.4 % (0.0-0.4); Lymphocytes Absolute Auto 0.5 X10*3/uL (1.2-4.9); Lymphocytes Percent Auto 7.2 % (20-40); Mean Corpuscular HGB Conc 34.4 g/dl (31.0-36.0); Mean Corpuscular Hemoglobin 30.7 pg (27.0-33.0); Mean Corpuscular Volume 89.3 fL (80.0-98.0); Monocytes Absolute Auto 0.3 X10*3/uL (0.1-1.2); Monocytes Percent Auto 3.6 % (2-11); Neutrophils Absolute Auto 6.3 x10*3/uL (2.0-8.3); Neutrophils Percent Auto 87.6 % (45-73); Platelet Count 198 X10*3/uL (160-400); Red Cell Distribution Width 12.9 % (11.0-16.0); White Blood Count 7.2 X10*3/uL (4.8-10.8)
[2022-03-23 19:52] VITALS: BP 132/78; PULSE 75; RESP 16; TEMP 36.9; O2SAT 95
[2022-03-23 19:57] LABS: Lactic Acid 1.7 mmol/L (0.5-2.0)
[2022-03-23 20:00] LABS: Alanine Aminotransferase 16 U/L (0-40); Albumin Level 3.7 g/dL (3.5-5.0); Alkaline Phosphatase 84 U/L (39-117); Anion Gap 11 (12-20); Aspartate Amino Transferase 14 U/L (5-37); Bilirubin Total 0.4 mg/dL (0.0-1.0); Blood Urea Nitrogen 23 mg/dL (9-16); Calcium 8.8 mg/dL (8.4-10.2); Carbon Dioxide 24 mmol/L (22-29); Chloride 111 mmol/L (96-108); Creatinine Clr Calc Pharmacy 91.1; Estimated Glomerular Filt Rate > 60; Glucose Random 104 mg/dL (60-115); Potassium 3.9 mmol/L (3.3-5.1); Sodium 142 mmol/L (135-145); Total Protein 6.5 g/dL (6.5-8.0)
--- NOTE | 2022-03-23 20:04 | PC.NURSE ---
pt arrived to ED via EMS hypertensive, tachycardic, on RN exam pt had large amount of very firm stool partially out of rectum, provider at bedside for digital disimpaction. pt reported more comfortable and tolerated well. post disimpaction vss. tech at bedside to draw labs/obtain EKG. pt pending CT.
[2022-03-23 20:05] LABS: Troponin-I High Sensitivity 6.7 ng/L (<3.5-35.0)
[2022-03-23 20:24] LABS: Influenza A PCR NEGATIVE (Negative); Influenza B PCR NEGATIVE (Negative); Resp Syncy Virus RNA Qual PCR NEGATIVE (Negative); SARS COV2 PCR INHOUSE NEGATIVE (Negative)
--- OUTSIDE RECORDS SUMMARY | 2022-03-23 20:34 | XMS_ITS | Continuity of Care Document ---
:1950 Author Organization [facility] Address [address] [facility], 3rd Floor, [address] [place] [id number]- Care Team Providers Name Role Phone Rebekah HELTON, Reny Reed Primary Care Physician Encounter [facility] Date(s): 05/17/20 - 06/16/20 [facility] [address] [facility], 3rd [facility], [address] [place] [id number] Allergies, Adverse Reactions, Alerts Substance Reaction Severity Status NKA Active Medications Debrox 6.5% Otic 2 times a day, 0 Refills, Maintenance, 05/30/20 12:39:00 EST, Partial fill upon patient request if the prescription is for a schedule II opioid drug. Start Date: 05/30/20 Status: Ordereddonepezil 10 mg oral tablet 10 mg, 1, tablet, By Mouth, Daily at bedtime, # 30 tablet, Refills 5, Tot. Refills 5, Maintenance, 05/28/20 8:32:00 EST, Route to Pharmacy Electronically, [facility]/pharmacy #[id number], Dispense after he completes one month at the 5 mg dose Start Date: 05/28/20 Status: Ordereddonepezil 5 mg oral tablet 5 mg, 1, tablet, By Mouth, Daily at bedtime, # 30 tablet, Refills 0, Tot. Refills 0, Maintenance, 06/25/20 8:30:00 EDT, Route to Pharmacy Electronically, [facility]/pharmacy #[id number], Only one month and then he will increase to 10mg dose Start Date: 06/25/20 Status: OrderedhydroCHLOROthiazide 12.5 mg oral capsule 1 capsule = 12.5 mg, By Mouth, Daily, # 30 capsule, 0 Refills, Maintenance, 05/30/20 12:38:00 EST, Capsule, Partial fill upon patient request if the prescription is for a schedule II opioid drug. Start Date: 05/30/20 Status: OrderedhydrOXYzine hydrochloride 10 mg oral tablet 2 tablet = 20 mg, By Mouth, 4 times a day, 0 Refills, Maintenance, 05/30/20 12:38:00 EST, Partial fill upon patient request if the prescription is for a schedule II opioid drug. Start Date: 05/30/20 Status: Orderedlabetalol 200 mg oral tablet 1 tablet = 200 mg, By Mouth, 2 times a day, 0 Refills, Maintenance, 05/30/20 12:38:00 EST, Partial fill upon patient request if the prescription is for a schedule II opioid drug. Start Date: 05/30/20 Status: OrderedLORazepam 0.5 mg oral tablet 1 tablet = 0.5 mg, By Mouth, 3 times a day, 0 Refills, Maintenance, 05/30/20 12:40:00 EST, Partial fill upon patient request if the prescription is for a schedule II opioid drug. Start Date: 05/30/20 Status: Orderedmeclizine 25 mg oral tablet 1 tablet = 25 mg, By Mouth, 3 times a day, 0 Refills, Maintenance, 05/30/20 12:39:00 EST, Partial fill upon patient request if the prescription is for a schedule II opioid drug. Start Date: 05/30/20 Status: OrderedPROzac 20 mg oral capsule 20 mg, 1, capsule, By Mouth, Daily, # 30 capsule, Refills 0, Maintenance, 05/30/20 12:38:00 EST, Partial fill upon patient request if the prescription is for a schedule II opioid drug. Start Date: 05/30/20 Status: Ordered
--- OUTSIDE RECORDS SUMMARY | 2022-03-23 20:34 | XMS_ITS | Continuity of Care Document ---
:1950 Author Organization [facility] Address [address] [facility], 3rd Floor, [address] [place] [address]- Care Team Providers Name Role Phone Rebekah HELTON, Reny Reed Primary Care Physician Encounter [facility] Date(s): 05/01/20 - 05/31/20 [facility] [address] [facility], 3rd [facility], [address] [place] [id number] Referring Physician: Samantha Canchola Allergies, Adverse Reactions, Alerts Substance Reaction Severity [...] 05/28/20 8:32:00 EST, Route to Pharmacy Electronically, [facility]/pharmacy #[id number], Dispense after he completes one month at the 5 mg dose Start Date: 05/28/20 Status: Ordereddonepezil 5 mg oral tablet 5 mg, 1, tablet, By Mouth, Daily at bedtime, # 30 tablet, Refills 0, Tot. Refills 0, Maintenance, 06/25/20 8:30:00 EDT, Route to Pharmacy Electronically, [facility]/pharmacy #[id number], Only one month and then he [...]
--- OUTSIDE RECORDS SUMMARY | 2022-03-23 20:34 | XMS_ITS | Continuity of Care Document ---
:1950 Author Organization [facility] Address [address] [place] [address]- Care Team Providers Name Role Phone Luz HELTON, Jaqueline Paris Primary Care Physician Encounter [facility] Date(s): 02/19/21 - 03/21/[address] [address]- Attending Physician: Kelly Bryant Admitting Physician: Kelly Bryant Referring Physician: AdmtrKelly Allergies, Adverse Reactions, Alerts Substance Reaction Severity [...] 05/28/20 8:32:00 EST, Route to Pharmacy Electronically, [facility]/pharmacy #[id number], Dispense after he completes one month at the 5 mg dose Start Date: 05/28/20 Status: Ordereddonepezil 5 mg oral tablet 5 mg, 1, tablet, By Mouth, Daily at bedtime, # 30 tablet, Refills 0, Tot. Refills 0, Maintenance, 06/25/20 8:30:00 EDT, Route to Pharmacy Electronically, [facility]/pharmacy #[id number], Only one month and then [...]
--- OUTSIDE RECORDS SUMMARY | 2022-03-23 20:34 | XMS_ITS | Continuity of Care Document ---
:1950 Author Organization [facility] Address [address] [place] [address], [address] [place] [address], [address] [place] [address]- Care Team Providers Name Role Phone Rebekah HELTON, Reny Reed Primary Care Physician Encounter [facility] Date(s): 04/09/20 - 05/09/20 [facility] [address] [place] [address], 3rd [facility], [address] [place] [id number]
--- OUTSIDE RECORDS SUMMARY | 2022-03-23 20:34 | XMS_ITS | Continuity of Care Document ---
:1950 Author Organization [facility] Address [address] [facility], 3rd [facility], [address] [place] [address]- Care Team Providers Name Role Phone Rebekah HELTON, Reny Reed Primary Care Physician Encounter [facility] Date(s): 05/04/20 - 06/03/20 [facility] [address] [facility], 3rd [facility], [address] [place] [id number] Allergies, Adverse Reactions, Alerts Substance Reaction [...] EST, Route to Pharmacy Electronically, [facility]/pharmacy #[id number], Dispense after he completes one month at the 5 mg dose Start Date: 05/28/20 Status: Ordereddonepezil 5 mg oral tablet 5 mg, 1, tablet, By Mouth, Daily at bedtime, # 30 tablet, Refills 0, Tot. Refills 0, Maintenance, 06/25/20 8:30:00 EDT, Route to Pharmacy Electronically, [facility]/pharmacy #[id number], Only one month and then he [...]
--- OUTSIDE RECORDS SUMMARY | 2022-03-23 20:34 | XMS_ITS | Continuity of Care Document ---
:1950 Author Organization [facility] Address [address] [facility], 3rd [facility], [address] [place] [address]- Care Team Providers Name Role Phone Rebekah HELTON, Reny Reed Primary Care Physician Unavailable Encounter [facility] Date(s): 07/24/20 - 11/17/20 [facility] [address] [facility], [address] [place] [address], [address] [place] [id number] Attending Physician: Shirin Urias MD Admitting Physician: Shirin Urias MD Allergies, Adverse Reactions, Alerts Substance Reaction Severity [...] 05/28/20 8:32:00 EST, Route to Pharmacy Electronically, [facility]/pharmacy #[id number], Dispense after he completes one month at the 5 mg dose Start Date: 05/28/20 Status: Ordereddonepezil 5 mg oral tablet 5 mg, 1, tablet, By Mouth, Daily at bedtime, # 30 tablet, Refills 0, Tot. Refills 0, Maintenance, 06/25/20 8:30:00 EDT, Route to Pharmacy Electronically, [facility]/pharmacy #[id number], Only one month and then [...]
--- OUTSIDE RECORDS SUMMARY | 2022-03-23 20:34 | XMS_ITS | Continuity of Care Document ---
:1950 Author Organization [facility] Address [address] [place] [address], [address] [facility], [address] [place] [address]- Care Team Providers Name Role Phone Rebekah HELTON, Reny Reed Primary Care Physician Encounter [facility] Date(s): 11/23/19 - 12/23/19 [facility] [address] [facility], [address] [facility], [address] [place] [address]- [facility]
--- OUTSIDE RECORDS SUMMARY | 2022-03-23 20:34 | XMS_ITS | Continuity of Care Document ---
:1950 Author Organization [facility] Address [address] [place] [address], [address] [place] [address], [address] [place] [address]- Care Team Providers Name Role Phone Rebekah HELTON, Reny Reed Primary Care Physician [place] [facility] [place]): 03/05/20 - 04/04/20 [facility] [address] [place] [address], 3rd Floor, [address] [place] [id number] Attending Physician: Kelly Bryant Admitting Physician: Kelly Bryant Referring Physician: Kelly Bryant
--- OUTSIDE RECORDS SUMMARY | 2022-03-23 20:34 | XMS_ITS | Continuity of Care Document ---
:1950 Author Organization [facility] Address [address] [place] [address]- Care Team Providers Name Role Phone Luz HELTON, Jaqueline Paris Primary Care Physician Encounter [facility] Date(s): 06/29/20 - 02/19/[address] [address]- Encounter Diagnosis Other speech disturbances (Final) - Discharge Disposition: A-D/C Home Attending Physician: Reny Welch MD Admitting Physician: Reny Welch MD Referring Physician: Reny Welch MD Allergies, Adverse Reactions, Alerts Substance Reaction [...] 05/28/20 8:32:00 EST, Route to Pharmacy Electronically, [facility]/pharmacy #[id number], Dispense after he completes one month at the 5 mg dose Start Date: 05/28/20 Status: Ordereddonepezil 5 mg oral tablet 5 mg, 1, tablet, By Mouth, Daily at bedtime, # 30 tablet, Refills 0, Tot. Refills 0, Maintenance, 06/25/20 8:30:00 EDT, Route to Pharmacy Electronically, [facility]/pharmacy #[id number], Only one month and then [...]
--- OUTSIDE RECORDS SUMMARY | 2022-03-23 20:34 | XMS_ITS | Continuity of Care Document ---
:1950 Author Organization [facility] Address [address] [place] [address], [address] [place] [address], [address] [place] [phone]- Care Team Providers Name Role Phone Rebekah HELTON, Reny Reed Primary Care Physician [place] [facility] Date(s): 12/06/19 - 04/04/20 [facility] [address] [place] [address], 3rd [facility], [address] [place] [id number] Attending Physician: Shirin Urias MD Admitting Physician: Shirin Urias MD
--- OUTSIDE RECORDS SUMMARY | 2022-03-23 20:34 | XMS_ITS | Continuity of Care Document ---
:1950 Author Organization [facility] Address [address] [facility], 3rd Floor, [address] [place] [address]- Care Team Providers Name Role Phone Rebekah HELTON, Reny Reed Primary Care Physician Unavailable Encounter [facility] Date(s): 10/18/20 - 11/17/20 [facility] [address] [facility], 3rd [facility], [address] [place] [id number] Attending Physician: Kelly Bryant Admitting Physician: AdmtrKelly Referring Physician: Admtr, Ar8 Allergies, Adverse Reactions, Alerts Substance Reaction Severity [...] 05/28/20 8:32:00 EST, Route to Pharmacy Electronically, [facility]/pharmacy #[id number], Dispense after he completes one month at the 5 mg dose Start Date: 05/28/20 Status: Ordereddonepezil 5 mg oral tablet 5 mg, 1, tablet, By Mouth, Daily at bedtime, # 30 tablet, Refills 0, Tot. Refills 0, Maintenance, 06/25/20 8:30:00 EDT, Route to Pharmacy Electronically, [facility]/pharmacy #[id number], Only one month and then he [...]
--- OUTSIDE RECORDS SUMMARY | 2022-03-23 20:34 | XMS_ITS | Continuity of Care Document ---
:1950 Author Organization [facility] n[facility] Address [address] [place] [address]- Care Team Providers Name Role Phone Jaqueline Escobar MD Primary Care Physician [place] [facility] [place](s[place] 05/15/21 - 05/16/[address] [address]- Discharge Disposition: Transferred [facility]term [facility] hospit Attending Physician: Paulo Miller MD Admitting Physician: Paulo Miller MD Referring Physician: Not on Staff, Referring MD Allergies, Adverse Reactions, Alerts No Known Allergies Medications busPIRone 5 mg oral tablet 5 mg, 1, tablet, By Mouth, 3 times a day, PRN, # 90 tablet, Refills 0, Maintenance, Anxiety, 05/16/21 10:27:00 EST, Partial fill upon patient request if the prescription is for a schedule II opioid drug. Start Date: 05/16/21 Stop Date: 06/15/21 Status: OrderedhydroCHLOROthiazide 12.5 mg oral capsule 1 [...] opioid drug. Start Date: 05/30/20 Status: Ordered Problem List Condition Effective Dates Status Health Status Informant Anxiety(Confirmed) Active Dementia(Confirmed) Active Depression(Confirmed) Active Vital Signs Most recent to oldest 1 2 3 [Reference Range]: Height 170 cm 170 cm 170 cm (05/15/21 11:52 PM) (05/15/21 10:28 PM) (05/15/21 6:59 PM) Weight 91 kg 91 kg 91 kg (05/15/21 11:52 PM) (05/15/21 10:28 PM) (05/15/21 6:59 PM) Oxygen Saturation [94-100 98 % 100 % 95 % %] (05/15/21 11:52 PM) (05/15/21 10:28 PM) (05/15/21 6:59 PM) Pulse Rate [55-90 bpm] 85 bpm 89 bpm 83 bpm (05/15/21 11:52 PM) (05/15/21 10:28 PM) (05/15/21 6:59 PM) Body Mass Index 31.49 31.49 [18.5-24.99] *>HHI* *>HHI* (05/15/21 11:52 PM) (05/15/21 10:28 PM) Blood Pressure 140/109 mm Hg 124/75 mm Hg 156/91 mm Hg [90-138/55-84 mm Hg] *H* (05/15/21 10:28 PM) *H* (05/15/21 11:52 PM) (05/15/21 6:59 P M) Respiratory Rate [16-30 20 br/min 16 br/min 18 br/mi n br/min] (05/15/21 11:52 PM) (05/15/21 10:28 PM) (05/15/21 6:59 PM) Temperature [96.8-100.4 98.6 DegF DegF] (05/15/21 6:59 PM) Mode of Delivery (Oxygen) Room air (05/15/21 11:52 PM) Blood pressure sites Arm, right (05/15/21 11:52 PM) Temperature Route Temporal (05/15/21 6:59 PM) Dry Weight 91 kg 91 kg 91 kg (05/15/21 11:52 PM) (05/15/21 10:28 PM) (05/15/21 6:59 PM) Dry Weight Obtained Via Patient/family stated (05/15/21 6:59 PM)
--- OUTSIDE RECORDS SUMMARY | 2022-03-23 20:34 | XMS_ITS | Continuity of Care Document ---
:1950 Author Organization [facility] Address [address] [place] [address], 3rd [facility], [address] [place] [address]- Care Team Providers Name Role Phone Rebekah EHLTON, Reny Reed Primary Care Physician Encounter [facility] Date(s): 11/09/19 - 12/09/19 [facility] [address] [facility], 3rd [facility], [address] [place] [address] [facility]
--- OUTSIDE RECORDS SUMMARY | 2022-03-23 20:34 | XMS_ITS | Continuity of Care Document ---
:1950 Author Organization [facility] Address [address] [place] [address]- Care Team Providers Name Role Phone Luz HELTON, Jaqueline Paris Primary Care Physician Encounter [facility] Date(s): 05/16/21 - 05/18/[address] [id number] Discharge Disposition: Transfer [employer] Care Attending Physician: Kathy Hutchison MD Admitting Physician: Mackenzie Zhang MD Referring Physician: Not on Staff, Referring MD Allergies, Adverse Reactions, Alerts No Known Allergies Immunizations Given and Recorded Vaccine Date Status Refusal Reason SARS-CoV-2 (COVID-19) mRNA BNT-162b2 vac 06/28/20 Recorde d SARS-CoV-2 (COVID-19) mRNA BNT-162b2 vac 06/05/20 Recorde d Medications acetaminophen 325 mg oral tablet 975 mg, By Mouth, Every 6 hours, Refills 0, Maintenance, 05/18/21 13:47:00 EST, Partial fill upon patient request if the prescription is for a schedule II opioid drug. Start Date: 05/18/21 Status: OrderedbusPIRone 5 mg oral tablet 5 mg, 1, tablet, By Mouth, 3 times a day, PRN, # 90 tablet, Refills 0, Maintenance, Anxiety, 05/16/21 10:27:00 EST, Partial fill upon patient request if the prescription is for a schedule II opioid drug. Start Date: 05/16/21 Stop Date: 06/15/21 Status: OrderedDocusate/Senna Tablet 1 tablet, By Mouth, 2 times a day, PRN Constipation, 0 Refills, Maintenance, 05/18/21 13:47:00 EST, Tablet, Partial fill upon patient request if the prescription is for a schedule II opioid drug. Start Date: 05/18/21 Status: OrderedhydroCHLOROthiazide 12.5 mg oral capsule 1 [...] II opioid drug. Start Date: 05/30/20 Status: Orderedmelatonin 3 mg oral tablet = 3 mg, By Mouth, Daily at bedtime, PRN Insomnia, 0 Refills, Maintenance, 05/18/21 13:47:00 EST, Tablet, Partial fill upon patient request if the prescription is for a schedule II opioid drug. Start Date: 05/18/21 Status: Ordered Problem List Condition Effective Dates Status Health Status Informant Anxiety(Confirmed) Active Dementia(Confirmed) Active Depression(Confirmed) Active Vital Signs Most recent to oldest 1 2 3 [Reference Range]: Height 170 cm 170 cm 170 cm (05/18/21 3:41 PM) (05/18/21 11:20 AM) (05/18/21 8: 04 AM) Weight 83.4 kg (05/16/21 7:28 PM) Oxygen Saturation [94-100 %] 100 % 96 % 96 % (05/18/21 3:41 PM) (05/18/21 11:20 AM) (05/18/21 8: 04 AM) Pulse Rate [55-90 bpm] 76 bpm 65 bpm 59 bpm (05/18/21 3:41 PM) (05/18/21 11:20 AM) (05/18/21 8: 04 AM) Body Mass Index [18.5-24.99] 28.86 *H* (05/16/21 7:28 PM) Blood Pressure [90-138/55-84 147/93 mm Hg 123/77 mm Hg 132 /87 mm Hg mm Hg] *H* (05/18/21 11:20 AM) (05/18/21 8:04 AM) (05/18/21 3:41 PM) Respiratory Rate [16-30 18 br/min 18 br/min 18 br/mi n br/min] (05/18/21 3:41 PM) (05/18/21 11:20 AM) (05/18/21 8: 04 AM) Temperature [96.8-100.4 DegF] 97.5 DegF 97.6 DegF 98 .2 DegF (05/18/21 3:41 PM) (05/18/21 11:20 AM) (05/18/21 8: 04 AM) Mode of Delivery (Oxygen) Room air Room air Room a ir (05/18/21 3:41 PM) (05/18/21 11:20 AM) (05/18/21 8: 04 AM) Blood pressure sites Arm, left Arm, right Arm, right (05/18/21 3:41 PM) (05/18/21 11:20 AM) (05/18/21 8: 04 AM) Temperature Route Oral Oral Temporal (05/18/21 3:41 PM) (05/18/21 11:20 AM) (05/18/21 8: 04 AM) Dry Weight 83.4 kg (05/16/21 7:28 PM) Weight Obtained Via Bed scale (05/16/21 7:28 PM)
--- OUTSIDE RECORDS SUMMARY | 2022-03-23 20:34 | XMS_ITS | Continuity of Care Document ---
:1950 Author Organization [facility] Address [address] [place] [address]- Care Team Providers Name Role Phone Rebekah HELTON, Reny Reed Primary Care Physician Unavailable Encounter [facility] [place] Date(s): 12/20/20 - 01/19/[address] [id number] Attending Physician: Kelly Bryant Admitting Physician: Kelly Bryant Referring Physician: Admtr, Lawrence8 Allergies, Adverse Reactions, Alerts Substance Reaction Severity [...] 05/28/20 8:32:00 EST, Route to Pharmacy Electronically, [facility]/pharmacy #[id number], Dispense after he completes one month at the 5 mg dose Start Date: 05/28/20 Status: Ordereddonepezil 5 mg oral tablet 5 mg, 1, tablet, By Mouth, Daily at bedtime, # 30 tablet, Refills 0, Tot. Refills 0, Maintenance, 06/25/20 8:30:00 EDT, Route to Pharmacy Electronically, [facility]/pharmacy #[id number], Only one month and then [...]
--- OUTSIDE RECORDS SUMMARY | 2022-03-23 20:34 | XMS_ITS | Continuity of Care Document ---
:1950 Author Organization [facility] Address [address] [place] [address], [address] [place] [address], [address] [place] [id number]- Care Team Providers Name Role Phone Rebekah HELTON, Reny Reed Primary Care Physician [facility]counter [facility] Date(s): 03/15/20 - 04/14/20 [facility] [address] [place] [address], 3rd [facility], [address] [place] [id number]
--- OUTSIDE RECORDS SUMMARY | 2022-03-23 20:34 | XMS_ITS | Continuity of Care Document ---
:1950 Author Organization [facility] Address [address] [place] [address]- Care Team Providers Name Role Phone Jaqueline Escobar MD Primary Care Physician Encounter [facility] Date(s): 02/13/21 - 03/21/[address] [address]- Attending Physician: Not on Staff, Attending MD Admitting Physician: Not on Staff, Admitting MD Referring Physician: Not on Staff, Referring MD Allergies, Adverse Reactions, Alerts Substance Reaction [...] 05/28/20 8:32:00 EST, Route to Pharmacy Electronically, [facility]/pharmacy #[id number], Dispense after he completes one month at the 5 mg dose Start Date: 05/28/20 Status: Ordereddonepezil 5 mg oral tablet 5 mg, 1, tablet, By Mouth, Daily at bedtime, # 30 tablet, Refills 0, Tot. Refills 0, Maintenance, 06/25/20 8:30:00 EDT, Route to Pharmacy Electronically, [facility]/pharmacy #[id number], Only one month and then he [...]
--- OUTSIDE RECORDS SUMMARY | 2022-03-23 20:34 | XMS_ITS | Continuity of Care Document ---
:1950 Author Organization [facility] Address [address] [place] [address], 3rd [facility], [address] [place] [address]- Care Team Providers Name Role Phone Rebekah HELTON, Reny Reed Primary Care Physician Encounter [facility] Date(s): 11/09/19 - 12/09/19 [facility] [address] [place] [address], 3rd [facility], [address] [place] [address]- [facility]
--- OUTSIDE RECORDS SUMMARY | 2022-03-23 20:34 | XMS_ITS | Continuity of Care Document ---
:1950 Author Organization [facility] Address [address] [facility], 3rd Floor, [address] [place] [address]- Care Team Providers Name Role Phone Rebekah HELTON, Reny Reed Primary Care Physician Encounter [facility] Date(s): 05/28/20 - 06/27/20 [facility] [address] [facility], 3rd Floor, [address] [place] [id number] Attending Physician: Kelly Bryant Admitting Physician: AdmtrKelly [...] 05/28/20 8:32:00 EST, Route to Pharmacy Electronically, [facility]/pharmacy #[id number], Dispense after he completes one month at the 5 mg dose Start Date: 05/28/20 Status: Ordereddonepezil 5 mg oral tablet 5 mg, 1, tablet, By Mouth, Daily at bedtime, # 30 tablet, Refills 0, Tot. Refills 0, Maintenance, 06/25/20 8:30:00 EDT, Route to Pharmacy Electronically, [facility]/pharmacy #[id number], Only one month and then he [...]
--- OUTSIDE RECORDS SUMMARY | 2022-03-23 20:34 | XMS_ITS | Continuity of Care Document ---
:1950 Author Organization [facility] Address [address] [place] [address], 3rd [facility], [address] [place] [address]- Care Team Providers Name Role Phone Yonatan HELTON, Gladys Nava Primary Care Physician Encounter [facility] Date(s): 08/24/19 - 10/29/19 [facility] [address] [place] [address], 3rd [facility], [address] [place] [address]- [facility] Attending Physician: Abimbola Nation NP Admitting Physician: Abimbola Nation NP Referring Physician: Rebekah HELTON, Reny Reed
--- OUTSIDE RECORDS SUMMARY | 2022-03-23 20:34 | XMS_ITS | Continuity of Care Document ---
:1950 Author Organization [facility] Address [address] [place] [address]- Care Team Providers Name Role Phone Rebekah HELTON, Reny Reed Primary Care Physician Encounter [facility] [place] Date(s): 03/07/20 - 04/06/[address] [address]- Attending Physician: Kelly Bryant Admitting Physician: Kelly Bryant Referring Physician: Kelly Bryant
--- OUTSIDE RECORDS SUMMARY | 2022-03-23 20:34 | XMS_ITS | Continuity of Care Document ---
:1950 Author Organization [facility] Address [address] [place] [address], [address] [place] [address], [address] [place] [address]- Care Team Providers Name Role Phone Rebekah HELTON, Reny Reed Primary Care Physician Encounter [facility] Date(s): 11/09/19 - 11/16/19 [facility] [address] [place] [address], 3rd [facility], [address] [place] [address]- [facility] Attending Physician: Abimbola Nation NP
--- OUTSIDE RECORDS SUMMARY | 2022-03-23 20:34 | XMS_ITS | Continuity of Care Document ---
:1950 Author Organization [facility] Address [address] [place] [address]- Care Team Providers Name Role Phone Rebekah HELTON, Reny Reed Primary Care Physician Encounter [facility] Date(s): 05/30/20 - 05/30/[address] [address]- Discharge Disposition: A-D/C Home Attending Physician: Mike Oseguera MD Admitting Physician: Mike Oseguera MD Referring Physician: Not on Staff, Referring [...] 05/28/20 8:32:00 EST, Route to Pharmacy Electronically, [facility]/pharmacy #[id number], Dispense after he completes one month at the 5 mg dose Start Date: 05/28/20 Status: Ordereddonepezil 5 mg oral tablet 5 mg, 1, tablet, By Mouth, Daily at bedtime, # 30 tablet, Refills 0, Tot. Refills 0, Maintenance, 06/25/20 8:30:00 EDT, Route to Pharmacy Electronically, [facility]/pharmacy #[id number], Only one month and [...] opioid drug. Start Date: 05/30/20 Status: Ordered Vital Signs Most recent to oldest [Reference Range]: 1 2 Height 170 cm (05/30/20 11:35 AM) Weight 93.5 kg (05/30/20 11:35 AM) Oxygen Saturation [94-100 %] 97 % 99 % (05/30/20 2:18 PM) (05/30/20 11:35 AM) Pulse Rate [55-90 bpm] 65 bpm 66 bpm (05/30/20 2:18 PM) (05/30/20 11:35 AM) Blood Pressure [90-138/55-84 mm Hg] 126/100 mm Hg 142/ 90 mm Hg (05/30/20 2:18 PM) *H* (05/30/20 11:35 AM) Respiratory Rate [16-30 br/min] 18 br/min 20 br/mi n (05/30/20 2:18 PM) (05/30/20 11:35 AM) Temperature [96.8-100.4 DegF] 98.2 DegF (05/30/20 11:35 AM) Mode of Delivery (Oxygen) Room air Room air (05/30/20 2:18 PM) (05/30/20 11:35 AM) Temperature Route Oral (05/30/20 11:35 AM) Dry Weight 93.5 kg (05/30/20 11:35 AM)
--- OUTSIDE RECORDS SUMMARY | 2022-03-23 20:34 | XMS_ITS | Continuity of Care Document ---
:1950 Author Organization [facility] Address [address] [facility], 3rd [facility], [address] [place] [id number]- Care Team Providers Name Role Phone Rebekah HELTON, Reny Reed Primary Care Physician Encounter [facility] Date(s): 04/24/20 - 06/09/20 [facility] [address] [facility], 3rd [facility], [address] [place] [id number] Attending Physician: Shirin Urias MD Admitting Physician: [...] 05/28/20 8:32:00 EST, Route to Pharmacy Electronically, [facility]/pharmacy #[id number], Dispense after he completes one month at the 5 mg dose Start Date: 05/28/20 Status: Ordereddonepezil 5 mg oral tablet 5 mg, 1, tablet, By Mouth, Daily at bedtime, # 30 tablet, Refills 0, Tot. Refills 0, Maintenance, 06/25/20 8:30:00 EDT, Route to Pharmacy Electronically, [facility]/pharmacy #[id number], Only one month and then he [...]
--- OUTSIDE RECORDS SUMMARY | 2022-03-23 20:34 | XMS_ITS | Continuity of Care Document ---
:1950 Author Organization [facility] Address [address] [place] [address]- Care Team Providers Name Role Phone Yonatan HELTON, Gladys Nava Primary Care Physician Encounter [facility] Date(s): 05/11/19 - 05/11/[address] [address]- [facility] Attending Physician: Rebekah HELTON, Reny Reed
[2022-03-23 21:15] VITALS: BP 131/73; PULSE 88; RESP 14; O2SAT 98
--- NOTE | 2022-03-23 21:20 | PC.NURSE ---
clean catch urine obtained. pt alert answering question appropriately w delayed speech.
[2022-03-23] MEDS: Sodium Phosphate,Mono-Dibasic 133 ML ENEMA PR (21:25)
[2022-03-23 21:27] LABS: Appearance Urine Clear; Color Urine Yellow; Glucose Urine UA Negative (Negative); Leukocyte Esterase Urine Negative (Negative); Nitrite Urine Negative (Negative); PH 5.5 (5.0-9.0); Specific Gravity - Urine 1.025 (1.005-1.025); Urine Blood Negative (Negative); Urine Ketones Negative (Negative); Urine Protein Trace mg/dL (Neg-Trace)
--- NOTE | 2022-03-23 21:32 | PC.NURSE ---
fleet enema administered - pt tolerated well.
[2022-03-23 21:48] VITALS: BP 141/88; PULSE 87; RESP 18; TEMP 37; O2SAT 96
--- NOTE | 2022-03-23 23:14 | MHC.EDTECH ---
Spoke with Pam tran grafton at 2213 for a bls transfer back to [facility] for 2299 Rn aware
--- NOTE | 2022-03-23 23:32 | PC.NURSE ---
RN-RN report called into johanny Ludwig to transport back via EMS.
== END 2022-03-24 00:44 | disposition skilled nursing facility (03) ==
PROVIDERS: Physician Assistant Medical; Emergency Provider Emergency Medicine
DX: R00.0 Tachycardia, unspecified (principal); K59.00 Constipation, unspecified; R53.1 Weakness; R10.2 Pelvic and perineal pain; R51.9 Headache, unspecified; Z20.822 Contact with and (suspected) exposure to COVID-19
CPT/HCPCS: 0241U; 70450; 71045; 74176; 80053; 81003; 83605; 83735; 84484; 85025; 87040; 93005; 99284

== ENCOUNTER 2023-08-04 13:37 | Emergency (ER) | payer MEDICARE, MEDICAID, SELFPAY ==
--- NOTE | ~2023-08-04 | CT_ITS ---
EXAMINATION: CT FACIAL BONES WITHOUT CONTRAST CLINICAL INFORMATION: Fall from wheelchair. Nasal deformity. COMPARISON: None available. TECHNIQUE: CT of the facial bones was performed without contrast. This CT examination was performed using dose optimization techniques as appropriate, variously including the following: *Automated exposure control *Adjustment of mA and/or kV according to patient size (this includes techniques or standardized protocols for targeted exams where dose is matched to indication/reason for exam; i.e. extremities or head) *Use of iterative reconstruction technique DLP: 291.69 mGy-cm FINDINGS: There are comminuted, bilateral nasal bone fractures. There is deformity of the nasal bony septum. There is blood and air within the nasal cavities bilaterally consistent with hemorrhage. There is mild mucosal thickening throughout the inferior aspects of the frontal sinuses. There is a moderate degree of ethmoid air cell mucosal disease. There is mild mucosal thickening throughout the maxillary sinuses. There is near complete opacification of the right sphenoid sinus. The mandible is intact. The temporomandibular joints are maintained. The mastoid air cells are well aerated. There is an acute fracture through the base of the dens. The fracture line extends into the superior aspect of the body of C2 on the right side rendering this a mixed type II/III fracture. The dens is angulated posteriorly causing mild narrowing of the cervicomedullary junction. CT/CT facial bones wo IV con IMPRESSION: There is an acute fracture through the base of the dens. The fracture line extends into the superior aspect of the body of C2 on the right side rendering this a mixed type II/III fracture. The dens is angulated posteriorly causing mild narrowing of the cervicomedullary junction. There are comminuted, bilateral nasal bone fractures. There is deformity of the nasal bony septum. There is blood and air within the nasal cavities bilaterally consistent with hemorrhage. This critical result was discussed with Tiffanie Michael at 4:37 PM on 08/04/2023 and it was ascertained that the content and urgency of the report was understood at the time of direct communication.
--- NOTE | ~2023-08-04 | CT_ITS ---
EXAMINATION: CT CERVICAL SPINE WITHOUT CONTRAST CLINICAL INFORMATION: Fall from wheelchair COMPARISON: None available. TECHNIQUE: Multidetector CT acquisitions of the cervical spine without administration of intravenous contrast. This CT examination was performed using dose optimization techniques as appropriate, variously including the following: *Automated exposure control *Adjustment of mA and/or kV according to patient size (this includes techniques or standardized protocols for targeted exams where dose is matched to indication/reason for exam; i.e. extremities or head) *Use of iterative reconstruction technique DLP: 310.79 mGy-cm FINDINGS: Age-indeterminate however are likely acute fracture through the base of the dens with mild dorsal angulation of the dens causing mild spinal canal stenosis at the cervicomedullary junction. The fracture line is seen extending through the superior aspect of the body of C2 on the right. There is also an age-indeterminate fracture deformity of the left posterior arch of C2 laterally. There is mild subluxation at the C1-2 articulations bilaterally. Otherwise, the basion dens distends and atlantoaxial distance remain unremarkable. Multilevel degenerative changes through the cervical spine including disc space narrowing, endplate osteophytosis, uncovertebral hypertrophy, and bilateral facet arthrosis. There is no prevertebral soft tissue swelling. No significant soft tissue abnormality within the neck. The visualized lung apices are clear. CT/CT cervical spine wo IV con IMPRESSION: -Likely acute fracture through the base of the dens extending through the superior aspect of the C2 body on the right with mild dorsal angulation of the dens causing mild stenosis at the cervicomedullary junction. There is also an age-indeterminate fracture deformity of the left posterior arch of C2. -Mild subluxation at the C1-2 articulations bilaterally which may be posttraumatic versus related to head positioning/degenerative changes.
--- NOTE | ~2023-08-04 | CT_ITS ---
EXAMINATION: CT HEAD WITHOUT CONTRAST CLINICAL INFORMATION: Fall from wheelchair. Nasal deformity. COMPARISON: CT head dated 03/23/2022. TECHNIQUE: Contiguous axial imaging was performed from the skull base to vertex without intravenous administration of contrast. This CT examination was performed using dose optimization techniques as appropriate, variously including the following: *Automated exposure control *Adjustment of mA and/or kV according to patient size (this includes techniques or standardized protocols for targeted exams where dose is matched to indication/reason for exam; i.e. extremities or head) *Use of iterative reconstruction technique DLP: 744.93 mGy-cm FINDINGS: There is no intracranial hemorrhage. There is no evidence of acute/subacute cerebral or cerebellar infarction. There is mild microvascular ischemic change. There is no midline shift or mass effect. There is no extra-axial fluid collection. No hydrocephalus. The orbits are symmetric and within normal limits. There is a frontal scalp hematoma. The calvarium is intact. There is no depressed skull fracture. The mastoid air cells are well aerated. There are bilateral nasal bone fractures. There appears to be a fracture involving the bony nasal septum. There is fluid and air within the nasal cavities likely representing blood. There is ethmoid air cell mucosal disease. There is circumferential maxillary sinus mucosal disease. CT/CT head/brain wo IV con IMPRESSION: No acute intracranial abnormality. Specifically, there is no intracranial hemorrhage. There is a frontal scalp hematoma. There are bilateral nasal bone fractures and apparent fracture of the bony nasal septum. These fractures will be fully described on CT facial bone examination performed concurrently with this examination.
[2023-08-04 13:54] VITALS: BP 144/96; BP 169/108; PULSE 85; PULSE 87; RESP 18; TEMP 36.4; O2SAT 96; O2SAT 99; BMI 29.6
--- NOTE | 2023-08-04 14:10 | ED.FALL ---
HPI - Fall General Chief Complaint: Fall Stated Complaint: FALL FROM WC,HEAD LAC,EPISTAXIS,-LOC,-THINNERS Time Seen by Provider: 08/04/23 13:44 Source: patient Mode of arrival: EMS History of Present Illness HPI Narrative: Nonverbal but does respond and this is patient's baseline, he is brought in by EMS from [facility] where staff report that patient fell forward from the wheelchair striking his forehead, no history of chronic anticoagulation nose was bleeding patient did not lose consciousness and arrives in a C-collar. Related Data Allergies Allergy/AdvReac Type Severity Reaction Status Date / Time Unable to Assess Allergy Verified 08/04/23 13:57 Review of Systems Review of Systems: Yes Unobtainable due to mental condition PMFSH Past Medical History Source: nursing notes reviewed Social History Social History Advance Directives: Yes Advance Directives on File: Yes Advance Directives Date on File: 03/23/22 Physical Exam Vital Signs: Vital Signs: Last Vital Signs Temp 97.5 F 08/04/23 13:54 Pulse 87 08/04/23 17:09 Resp 17 08/04/23 17:09 BP 157/91 H 08/04/23 17:09 Pulse Ox 98 08/04/23 17:09 O2 Del Method Room Air 08/04/23 17:09 BMI result Body Mass Index 29.6 VITAL SIGNS: Reviewed. GENERAL: Well developed, well nourished, in no acute distress. HEAD: Normocephalic/3cm linear laceration hemostatic EYES: PERRLA, EOMI EARS: Ext canals without abnormality NOSE: Ecchymosis and mild swelling to the bridge of the nose, hemostatic OROPHARYNX: no oral lesions noted, posterior pharynx clear, stigmata of bleeding within the oral cavity likely from the epistaxis, no obvious lesions or injuries NECK: C-collar in place without midline cervical spine step-offs or noted tenderness to palpation LUNGS: Normal breath sounds. No adventitious sounds or accessory muscle use. SpO2<99> CARDIOVASCULAR: Regular rate and rhythm without noted murmurs, no JVD or lower extremity edema. ABDOMEN: Soft, non-tender, non-distended with bowel sounds. MUSCULOSKELETAL: No tenderness, deformities, or effusions noted on gross inspection. EXTREMITIES: No cyanosis, clubbing or edema. SKIN: Inspection of the skin reveals no rashes NEUROLOGIC: Alert and oriented x 2. Strength and sensation to light touch were grossly intact x 4. Medications Administered Discontinued Medications Generic Name Dose Route Start Last Admin Trade Name Eagle PRN Reason Stop Dose Admin Sodium Chloride 1,000 mls @ 999 mls/hr 08/04/23 16:45 08/04/23 18:12 Ns IV 08/04/23 17:45 Infused .Q1H1M MORIAH Infusion Procedures Laceration Laceration 1: Site: face Size (cm): 3 Description: linear Depth: simple, single layer Local Anesthetic: lidocaine 1% Amount of anesthesia used (mL): 3 Pre-repair: wound explored, irrigated extensively and deep structures intact Skin layer closed with: nylon Size (cm): 4-0 Number of sutures: 5 Technique: simple, interrupted Medical Decision Making Medical Decision Making [facility] Narrative: 72-year-old male with history and clinical presentation, DDX: Mechanical fall forward from wheelchair without loss of consciousness, will repair forehead laceration with dissolvable sutures, will also obtain imaging studies to evaluate head/neck/facial bones. 1635: Notified by [facility] that patient has a dens fracture-type 2 that extends into the body on the right. Will prepare to transfer to [facility], patient remains in the C-collar. 1652: I contacted patient's sister and informed her of the CT scan findings to include the comminuted nasal bone fracture as well as the dens fracture. Patient's contact is Tiffanie Overton (sister) [phone] I discussed case with [facility] ED physician, Dr. Machado, who accepts transfer. I reviewed all investigations and hematologic indices are negative for leukocytosis and there is a chronic normocytic anemia and a borderline thrombocytopenia. Coagulation studies are within normal limits. Chemistry indices do not demonstrate an HILARIO or electrolyte/liver enzyme derangements. Differential Diagnosis Differential Diagnoses: The differential diagnosis associated with the presentation includes Please see the discussion above Admission/Observation Consideration of admission/observation: Escalation of care including admission/observation considered Please see the discussion above Consult Healthcare Provider Management of the patient was discussed with: Cooker Sulfite Please see the discussion above Lab Data [facility] Lab Attestation statement: I reviewed the patient's lab results. Please see the discussion above 08/04/23 16:52 08/04/23 16:52 Labs: Lab Results 08/04/23 Range/Units 16:52 WBC 6.0 (4.8-10.8) X10*3/uL RBC 4.28 L (4.60-5.80) X10*6/uL Hgb 13.5 L (14.0-18.0) g/dl Hct 37.5 L (42.0-52.0) % MCV 87.6 (80.0-98.0) fL MCH 31.5 (27.0-33.0) pg MCHC 36.0 (31.0-36.0) g/dl RDW 13.3 (11.0-16.0) % Plt Count 151 L (160-400) X10*3/uL MPV 10.0 (9.4-12.4) fL Immature Gran % (Auto) 0.3 (0.0-0.4) % Neut % (Auto) 85.4 H (45-73) % Lymph % (Auto) 9.7 L (20-40) % [place] % (Auto) 4.0 (2-11) % Eos % (Auto) 0.3 (0-4) % Baso % (Auto) 0.3 (0-2) % Lymph # (Auto) 0.6 L (1.2-4.9) X10*3/uL [place] # (Auto) 0.2 (0.1-1.2) X10*3/uL Eos # (Auto) 0.0 (0.0-0.4) X10*3/uL Baso # (Auto) 0.0 (0.0-0.2) X10*3/uL Abs Immat Gran (auto) 0.02 (0.00-0.03) X10*3/uL Absolute Neuts (auto) 5.1 (2.0-8.3) x10*3/uL Absolute Nucleated RBC 0.000 (0.0-0.012) X10*3/uL Nucleated RBC % (auto) 0.0 (0.0-0.2) /100WBC PT 13.2 (11.1-13.3) SEC INR 1.1 (0.9-1.1) Sodium 137 (135-145) mmol/L Potassium 3.7 (3.3-5.1) mmol/L Chloride 104 (96-108) mmol/L Carbon Dioxide 23 (22-29) mmol/L Anion Gap 14 (12-20) BUN 18 H (9-16) mg/dL Creatinine 0.70 (0.5-1.4) mg/dL Estim Creat Clear Calc 89.4 Estimated GFR > 60 Random Glucose 123 H (60-115) mg/dL Calcium 9.2 (8.4-10.2) mg/dL Total Bilirubin 0.6 (0.0-1.0) mg/dL AST 16 (5-37) U/L ALT 11 (0-40) U/L Alkaline Phosphatase 95 (39-117) U/L Total Protein 7.7 (6.5-8.0) g/dL Albumin 3.8 (3.5-5.0) g/dL Radiology Impression Discussion of test interpretation with radiology: I have reviewed the radiologist's reading. Radiologist Impression: Please see the discussion above External Record Review External record reviewed: Outpatient record, Prior outpatient labs and Prior outpatient radiology Chronic Conditions Dementia Critical Care Time Critical Care Time Critical Care Time: Yes Total Critical Care Time: 60 Attestation: I personally attest to this time spent taking care of the patient. Discharge Plan Discharge Clinical Impression: Fall, Fracture of nasal bones, closed, Closed dens fracture, Forehead laceration Patient Disposition: er Acute Care Hospital Transfer Details: Escalated care for neurosurgery Print Language: Uzbek
[2023-08-04] MEDS: 0.9 % Sodium Chloride 1,000 ML 999 ML IV (17:00)
[2023-08-04 17:03] LABS: MANUAL DIFF FLAG NO
[2023-08-04 17:09] VITALS: BP 157/91; PULSE 87; RESP 17; O2SAT 98
[2023-08-04 17:11] LABS: INTERNATIONAL NORM RATIO 1.1 (0.9-1.1); Prothrombin Time 13.2 SEC (11.1-13.3)
[2023-08-04 17:12] LABS: Basophils Percent Auto 0.3 % (0-2); Eosinophils Percent Auto 0.3 % (0-4); Hematocrit 37.5 % (42.0-52.0); Hemoglobin 13.5 g/dl (14.0-18.0); Imm Gran Abs Auto 0.02 X10*3/uL (0.00-0.03); Imm Gran Pct Auto 0.3 % (0.0-0.4); Lymphocytes Absolute Auto 0.6 X10*3/uL (1.2-4.9); Lymphocytes Percent Auto 9.7 % (20-40); Mean Corpuscular Hemoglobin 31.5 pg (27.0-33.0); Mean Corpuscular Volume 87.6 fL (80.0-98.0); Monocytes Absolute Auto 0.2 X10*3/uL (0.1-1.2); Neutrophils Absolute Auto 5.1 x10*3/uL (2.0-8.3); Neutrophils Percent Auto 85.4 % (45-73); Platelet Count 151 X10*3/uL (160-400); Red Blood Count 4.28 X10*6/uL (4.60-5.80); Red Cell Distribution Width 13.3 % (11.0-16.0)
[2023-08-04 17:23] LABS: Alanine Aminotransferase 11 U/L (0-40); Albumin Level 3.8 g/dL (3.5-5.0); Alkaline Phosphatase 95 U/L (39-117); Anion Gap 14 (12-20); Aspartate Amino Transferase 16 U/L (5-37); Bilirubin Total 0.6 mg/dL (0.0-1.0); Blood Urea Nitrogen 18 mg/dL (9-16); Calcium 9.2 mg/dL (8.4-10.2); Carbon Dioxide 23 mmol/L (22-29); Chloride 104 mmol/L (96-108); Creatinine Clr Calc Pharmacy 89.4; Estimated Glomerular Filt Rate > 60; Glucose Random 123 mg/dL (60-115); Potassium 3.7 mmol/L (3.3-5.1); Sodium 137 mmol/L (135-145); Total Protein 7.7 g/dL (6.5-8.0)
[2023-08-04 18:30] VITALS: BP 157/91; PULSE 87; RESP 17; TEMP 36.4; O2SAT 98
== END 2023-08-04 18:30 | disposition short-term general hospital (02) ==
PROVIDERS: Emergency Provider Student in an Organized Health Care Education/Training Program; PCP Emergency Medicine
DX: S02.2XXA Fracture of nasal bones, initial encounter for closed fracture (principal); S12.110A Anterior displaced Type II dens fracture, initial encounter for closed fracture; S01.81XA Laceration without foreign body of other part of head, initial encounter; W05.0XXA Fall from non-moving wheelchair, initial encounter; Y93.9 Activity, unspecified; Y92.10 Unspecified residential institution as the place of occurrence of the external cause; Y99.9 Unspecified external cause status
CPT/HCPCS: 12013; 36415; 70450; 70486; 72125; 80053; 85025; 85610; 96360; 99285